=== PATIENT | female | born 1980 | race Two or more races ===

== ENCOUNTER 2020-05-09 20:19 | Emergency (ER) | payer BC ==
[2020-05-09] MEDS ORDERED: OXYCODONE-ACETAMINOPHEN 5-325 MG TABLET PO ONE ×2 (20:22→22:07)
--- NOTE | 2020-05-09 20:26 | ER Document Report ---
ED Medical Screen (RME) - General Stated Complaint: RIGHT ARM INJURY Time Seen by Provider: 05/09/20 20:21 - HPI Notes: 05/09/20 20:25 40-year-old female to the emergency department with complaints of a right hand deformity and pain after she accidentally dropped a resource forester block on it. She and her were moving this in her home when she lost her laundry tech and fell down onto her hand. She has a deformity at her right second and third MCP joints. She states her fingers also really hurt. She is in significant pain distress. She has good radial pulse. Pain control and x-rays ordered. I performed a brief medical screening exam on the patient determined that the patient needs further evaluation and management by main side provider. I have placed initial orders to help expedite care.
--- NOTE | 2020-05-09 21:27 | RADIOLOGY REPORT (SQ) ---
CLINICAL INDICATION: right hand deformity. . TECHNIQUE: 3 view(s) were obtained of the right hand. COMPARISON: None. FINDINGS: No acute displaced fracture is identified of the hand. Alignment appears anatomic. Joint spaces are within normal limits for age. Surrounding soft tissues are unremarkable. Fingers are shown to be overlapping on the lateral view. If there a history of a hyperextension injury to any digit, dedicated lateral imaging of the digit in question is advised. IMPRESSION: No evidence of acute bony injury to the hand.
[2020-05-09] MEDS ORDERED: IBUPROFEN 800 MG TABLET PO ONE (21:55)
--- NOTE | 2020-05-09 21:57 | ER Document Report ---
HPI - HPI Patient complains to provider of: hand injury Time Seen by Provider: 05/09/20 20:21 Onset: Just prior to arrival Onset/Duration: Sudden Quality of pain: Sharp Pain Level: 4 Context: Patient was moving a desk into her room and tripped having the kier pleater block top landed on her right hand. Patient is right-hand dominant. Patient with swelling to the right hand. Associated Symptoms: Other - Right hand injury Exacerbated by: Movement Relieved by: Denies Similar symptoms previously: No Recently seen / treated by doctor: No - ROS ROS below otherwise negative: Yes Systems Reviewed and Negative: Yes All other systems reviewed and negative - GASTROINTESTINAL Gastrointestinal: DENIES: Nausea - MUSCULOSKELETAL Musculoskeletal: REPORTS: Extremity pain, Swelling - DERM Skin Color: Ecchymosis Skin Problems: Abrasion Past Medical History - General Information source: Patient - Social History Smoking Status: Never Smoker Chew tobacco use (# tins/day): No Frequency of alcohol use: None Drug Abuse: None Occupation: [employer] Lives with: Spouse/Significant other Family History: Reviewed & Not Pertinent Endocrine Medical History: Reports: Hx Diabetes Mellitus Type 2 - Prediabetic Surgical Hx: Negative Vertical Provider Document - CONSTITUTIONAL Agree With Documented VS: Yes Exam Limitations: No Limitations General Appearance: WD/WN, No Apparent Distress - HEENT HEENT: Atraumatic, Normocephalic - NECK Neck: Normal Inspection, Supple - RESPIRATORY Respiratory: No Respiratory Distress - CARDIOVASCULAR Pulses: Normal: Radial - MUSCULOSKELETAL/EXTREMETIES Musculoskeletal/Extremeties: MAEW, Tender - Tenderness to the right hand over the third and fourth metacarpals, area with overlying ecchymosis and abrasion, Edema, Eccymosis - NEURO Level of Consciousness: Awake, Alert, Appropriate Motor/Sensory: No Motor Deficit, No Sensory Deficit Notes: Able to oppose fingers of affected hand without difficulty - DERM Integumentary: Warm, Dry Notes: Abrasion to dorsum of right hand Course - Re-evaluation Re-evalutation: 05/09/20 21:56 Patient with crush injury to right hand with no acute fracture. Patient with full range of motion and no radial, medial or ulnar nerve deficits appreciated, no concern for compartment syndrome. Patient's tetanus immunizations currently up-to-date. Patient encouraged to elevate extremity to treat pain symptomatically. Patient encouraged to follow-up with hand specialist for any persistent pain or problems. 05/09/20 22:15 - Vital Signs Vital signs: Temp Pulse Resp BP Pulse Ox 97.8 F 88 22 H 125/85 97 05/09/20 20:29 05/09/20 20:24 05/09/20 20:24 05/09/20 20:24 05/09/20 20:24 - Diagnostic Test Radiology reviewed: Image reviewed, Reports reviewed Discharge - Discharge Clinical Impression: Hand crush injury Qualifiers: Encounter type: initial encounter Laterality: right Qualified Code(s): S67.21XA - Crushing injury of right hand, initial encounter Condition: Stable Disposition: HOME, SELF-CARE Instructions: Crush Injury ([facility]), Ice & Elevation ([facility]), Oral Narcotic Medication ([facility]) Additional Instructions: Return immediately for any new or worsening symptoms Follow with orthopedic hand specialist for any persistent pain or problems Prescriptions: Naproxen [Naprosyn 250 Nmg Tablet] 1 tab PO BID #14 tablet Oxycodone HCl/Acetaminophen [Percocet 5-325 mg Tablet] 1 tab PO ASDIR PRN #12 tablet PRN Reason: Referrals: SHEY HARDIN DO [ACTIVE STAFF] - Follow up as needed
[2020-05-09 22:20] VITALS: BP 123/85
== END 2020-05-09 22:20 | disposition home or self-care (01) ==
LOC: ER 20:19
DX: S67.21XA Crushing injury of right hand, initial encounter (principal); W20.8XXA Other cause of strike by thrown, projected or falling object, initial encounter
CPT/HCPCS: 99284